=== PATIENT | female | born 1995 | race Hispanic/Latino ===

== ENCOUNTER 2017-04-27 13:29 | Emergency (ER) | payer BC ==
[2017-04-27] MEDS ORDERED: REGLAN IV ONE (14:44)
[2017-04-27] MEDS ORDERED: BENADRYL IV ONE (14:44)
[2017-04-27 15:07] LABS: HCG Qualitative,Urine Negative (Negative)
[2017-04-27 15:11] LABS: Bacteria,Urine 1+ /HPF (Negative); Bilirubin,Urine NEG (Negative); Blood,Urine NEG (Negative); Color,Urine Yellow (Yellow); Mucus,Urine 3+ /HPF; Urobilinogen,Urine < 2.0 mg/dL (<2.0)
--- NOTE | 2017-04-27 15:28 | Emergency Department Report ---
ED Headache HPI - General Chief Complaint: Headache Stated Complaint: MIGRAINE Time Seen by Provider: 04/27/17 14:43 - History of Present Illness Initial Comments: 21-year-old female past medical history none presents with headache the last 4- 5 days. Anterior. Throbbing. States it is mild. Also states that she has had increased urinary frequency for 2 days. Denies any nausea vomiting neck rigidity head trauma fevers or chills. Slight suprapubic discomfort. Denies any hematuria or vaginal discharge. States she may have a UTI. Headache currently 4/ 10 pain scale, again denies any head trauma or neck pain. No photo or phonophobia reported by the patient. Fully lucid and conversant during interview and nontoxic appearing. Denies any alcohol or drug use. Denies any prodrome or aura Timing/Duration: episodic, waxing and waning, other (5 days) Quality: moderate Head Injury Location: frontal Recent Head Trauma: no recent headache/trauma Allergies/Adverse Reactions: Allergies No Known Allergies Allergy (Unverified 04/27/17 13:33) Home Medications: Ambulatory Orders Naproxen [Naprosyn TAB] 375 mg PO BID PRN #20 tablet 04/27/17 Nitrofurantoin Monohyd/M-Cryst [Macrobid 100 mg Capsule] 100 mg PO BID #14 capsule 04/27/17 ED Review of Systems ROS: Stated complaint: MIGRAINE Other details as noted in HPI Constitutional: denies: chills, fever Eyes: denies: eye pain, eye discharge, vision change ENT: denies: ear pain, throat pain Respiratory: denies: cough, shortness of breath, wheezing Cardiovascular: denies: chest pain, palpitations Endocrine: no symptoms reported Gastrointestinal: denies: abdominal pain, nausea, diarrhea Genitourinary: frequency. denies: urgency, dysuria, discharge Musculoskeletal: denies: back pain, joint swelling, arthralgia Skin: denies: rash, lesions Neurological: headache. denies: weakness, paresthesias Psychiatric: denies: anxiety, depression Hematological/Lymphatic: denies: easy bleeding, easy bruising ED Past Medical Hx - Past Medical History Previous Medical History?: No - Surgical History Past Surgical History?: No - Social History Smoking Status: Never Smoker Substance Use Type: Non Opiate Pain - Medications Home Medications: Home Medications Medication Instructions Recorded Confirmed Last Taken Type Naproxen [Naprosyn TAB] 375 mg PO BID PRN #20 tablet 04/27/17 Unknown Rx Nitrofurantoin Monohyd/M-Cryst 100 mg PO BID #14 capsule 04/27/17 Unknown Rx [Macrobid 100 mg Capsule] ED Physical Exam - General Limitations: No Limitations General appearance: alert, in no apparent distress - Head Head exam: Present: atraumatic, normocephalic - Eye Eye exam: Present: normal appearance, PERRL, EOMI - ENT ENT exam: Present: mucous membranes moist - Neck Neck exam: Present: normal inspection, full ROM - Respiratory Respiratory exam: Present: normal lung sounds bilaterally. Absent: respiratory distress - Cardiovascular Cardiovascular Exam: Present: regular rate, normal rhythm. Absent: systolic murmur, diastolic murmur, rubs, gallop - GI/Abdominal GI/Abdominal exam: Present: soft (abdomen soft and nontender although there is slight suprapubic discomfort on deep palpation), normal bowel sounds - Extremities Exam Extremities exam: Present: normal inspection - Back Exam Back exam: Present: normal inspection - Neurological Exam Neurological exam: Present: alert, oriented X3, CN II-XII intact, normal gait - Expanded Neurological Exam Expanded Patient oriented to: Present: person, place, time Cranial nerves: EOM's Intact: Normal, Facial Sensation: Normal Cerebellar function: Finger to Nose: Normal, Romberg: Normal Sensory exam: Upper Extremity Light Touch: Normal, Lower Extremity Light Touch: Normal Motor strength exam: RUE: 5, LUE: 5, RLE: 5, LLE: 5 Best Eye Response (Juan Manuel): (4) open spontaneously Best Motor Response ([place]): (6) obeys commands Best Verbal Response ([place]): (5) oriented Juan Manuel Total: 15 - Psychiatric Psychiatric exam: Present: normal affect, normal mood - Skin Skin exam: Present: warm, dry, intact, normal color. Absent: rash ED Course Vital Signs 04/27/17 13:33 Temperature 98.2 F Pulse Rate 97 H Respiratory 18 Rate Blood Pressure 136/82 O2 Sat by Pulse 99 Oximetry ED Medical Decision Making - Medical Decision Making A/P: Urinary tract infection, headache 1-empiric course of Macrobid, analysis shows WBCs+ and pt is symptomatic, urine culture sent 2-patient's headache has significantly improved with 1 dose of Reglan. Will discharge with naproxen 3-follow-up with primary care. Advised patient to return to the ED for any uncontrolled nausea and vomiting persistent fevers and chills flank pain worsened dysuria or inability to tolerate by mouth or abdominal pain. Patient stated she understood my instructions. 4- vital signs stable for discharge Critical care attestation.: If time is entered above; I have spent that time in minutes in the direct care of this critically ill patient, excluding procedure time. ED Disposition Clinical Impression: Urinary tract infection Qualifiers: Urinary tract infection type: acute cystitis Hematuria presence: without hematuria Qualified Code(s): N30.00 - Acute cystitis without hematuria Headache Qualifiers: Headache type: other headache syndrome Qualified Code(s): G44.89 - Other headache syndrome Disposition: TO HOME OR SELFCARE Is pt being admited?: No Does the pt Need Aspirin: No Condition: Stable Instructions: Acute Headache (ED), Urinary Tract Infection in Women (ED) Prescriptions: Naproxen [Naprosyn TAB] 375 mg PO BID PRN #20 tablet PRN Reason: Headache Nitrofurantoin Monohyd/M-Cryst [Macrobid 100 mg Capsule] 100 mg PO BID #14 capsule Referrals: [facility] [Outside] - 3-5 Days [facility] [Outside] - 3-5 Days Forms: Accompanied Note, Work/School Release Form(ED) Time of Disposition: 15:52
[2017-04-27 15:58] VITALS: BP 136/90
== END 2017-04-27 15:57 | disposition home or self-care (01) ==
LOC: ED 13:29
DX: N39.0 Urinary tract infection, site not specified (principal); G44.89 Other headache syndrome
CPT/HCPCS: 81001; 81025; 87076; 87086; 87186; 96374; 99283; J1200; J2765

== ENCOUNTER 2021-01-23 10:09 | Emergency (ER) | payer SELFPAY ==
[2021-01-23 10:40] VITALS: BP 164/100
--- NOTE | 2021-01-23 11:54 | Emergency Department Report ---
ED General Adult HPI - General Chief complaint: Head Injury Stated complaint: HEAD HURTING REALLY BAD Time Seen by Provider: 01/23/21 11:35 Source: patient Mode of arrival: Ambulatory Limitations: No Limitations - History of Present Illness Initial comments: Patient is a 25-year-old female presents emergency room with complaints of a fall injury that occurred on 12/26/2020. She reports that she was seen at [facility] at that time. She states that she slipped and fell on a piece of concrete and fell backwards and hit her back in her head. She reports that she had x-rays performed which she states were normal and she was diagnosed with a lumbar strain. She reports that she had a brief episode of loss consciousness. She states over the last month she has had intermittent headaches. She states occasionally she feels nauseous and her headaches worsened after staring at a phone screen or TV screen. She has had no further episodes of loss of consciousness. She denies any vomiting, vision changes, numbness, weakness, bowel or bladder incontinence. She denies any past medical history. No allergies to medications. Severity scale (0 -10): 10 - Related Data Previous Rx's Medication Instructions Recorded Last Taken Type Naproxen [Naprosyn TAB] 375 mg PO BID PRN #20 tablet 04/27/17 Unknown Rx Nitrofurantoin Monohyd/M-Cryst 100 mg PO BID #14 capsule 04/27/17 Unknown Rx [Macrobid 100 mg Capsule] Butalb/Acetaminophen/Caffeine 1 cap PO Q8HR PRN #12 cap 01/23/21 Unknown Rx [Fioricet 50-300-40 mg CAP] Allergies Allergy/AdvReac Type Severity Reaction Status Date / Time No Known Allergies Allergy Verified 01/23/21 10:39 ED Review of Systems ROS: Stated complaint: HEAD HURTING REALLY BAD Other details as noted in HPI Comment: All other systems reviewed and negative ED Past Medical Hx - Social History Smoking Status: Never Smoker Substance Use Type: Non Opiate Pain - Medications Home Medications: Home Medications Medication Instructions Recorded Confirmed Last Taken Type Naproxen [Naprosyn TAB] 375 mg PO BID PRN #20 tablet 04/27/17 Unknown Rx Nitrofurantoin Monohyd/M-Cryst 100 mg PO BID #14 capsule 04/27/17 Unknown Rx [Macrobid 100 mg Capsule] Butalb/Acetaminophen/Caffeine 1 cap PO Q8HR PRN #12 cap 01/23/21 Unknown Rx [Fioricet 50-300-40 mg CAP] ED Physical Exam - General Limitations: No Limitations General appearance: alert, in no apparent distress - Head Head exam: Present: atraumatic, normocephalic - Eye Eye exam: Present: normal appearance, PERRL, EOMI. Absent: periorbital swelling, periorbital tenderness - ENT ENT exam: Present: mucous membranes moist - Respiratory Respiratory exam: Present: normal lung sounds bilaterally. Absent: respiratory distress, wheezes, rales, rhonchi, stridor, chest wall tenderness, accessory muscle use, decreased breath sounds, prolonged expiratory - Cardiovascular Cardiovascular Exam: Present: regular rate, normal rhythm, normal heart sounds. Absent: systolic murmur, diastolic murmur, rubs, gallop - Neurological Exam Neurological exam: Present: alert, oriented X3, CN II-XII intact, normal gait, other (5/5 muscle strength in the BUE/BLE, no pronator drift, normal sensation, normal finger to nose, normal heel to milian). Absent: motor sensory deficit - Psychiatric Psychiatric exam: Present: normal affect, normal mood - Skin Skin exam: Present: warm, dry, intact ED Course Vital Signs 01/23/21 10:36 Temperature 98.6 F Pulse Rate 86 Respiratory 20 Rate Blood Pressure 164/100 [Left] O2 Sat by Pulse 100 Oximetry ED Medical Decision Making - Medical Decision Making Patient is a 25-year-old female presents emergency room with complaints of a fall injury that occurred on 12/26/2020. She reports that she was seen at [facility] at that time. She states that she slipped and fell on a piece of concrete and fell backwards and hit her back in her head. She reports that she had x-rays performed which she states were normal and she was diagnosed with a lumbar strain. She reports that she had a brief episode of loss consciousness. She states over the last month she has had intermittent headaches. She states occasionally she feels nauseous and her headaches worsened after staring at a phone screen or TV screen. She has had no further episodes of loss of consciousness. She denies any vomiting, vision changes, numbness, weakness, bowel or bladder incontinence. She denies any past medical history. No allergies to medications. Patient has no focal neurological defic its at this time. symptoms could be related to postconcussion headaches. [facility] CT head rule is 0, CT head imaging is not recommended. She is not having any vision changes, numbness, weakness, vomiting. She is amatory without difficulty. Patient given prescription for medication. Patient will be referred to primary care and neurology. Advised patient to avoid contact sports and reduce screen time. Advised patient Please take medication as prescribed. Increase your fluid intake. Follow-up with a neurologist. follow up with your primary care doctor. Return to emergency room for any worsening symptoms. Critical care attestation.: If time is entered above; I have spent that time in minutes in the direct care of this critically ill patient, excluding procedure time. ED Disposition Clinical Impression: Headache Qualifiers: Headache type: unspecified Headache chronicity pattern: acute headache Intractability: not intractable Qualified Code(s): R51.9 - Headache, unspecified Disposition: 01 HOME / SELF CARE / HOMELESS Is pt being admited?: No Does the pt Need Aspirin: No Condition: Stable Instructions: Post-Concussion Syndrome Additional Instructions: Please take medication as prescribed. Increase your fluid intake. Follow-up with a neurologist. follow up with your primary care doctor. Return to emergency room for any worsening symptoms. Prescriptions: Butalb/Acetaminophen/Caffeine [Fioricet 50-300-40 mg CAP] 1 cap PO Q8HR PRN #12 cap PRN Reason: headache Referrals: JEET EGAN MD [Referring] - 3-5 Days CONSTANZA DENNIS MD [Staff Physician] - 3-5 Days your, primary care doctor [Other] - 3-5 Days Time of Disposition: 11:52 Print Language: TURKISH
== END 2021-01-23 12:04 | disposition home or self-care (01) ==
LOC: ED 10:09
DX: R51.9 Headache, unspecified (principal); R11.0 Nausea
CPT/HCPCS: 99282